=== PATIENT | female | born 1990 ===

== ENCOUNTER 2018-04-28 11:01 | Emergency (ER) | payer BC, MEDICAID ==
[2018-04-28 11:16] VITALS: RESP 16; O2SAT 99
[2018-04-28 11:17] VITALS: BMI 39.9
--- NOTE | 2018-04-28 11:34 | ED PDOC ---
Upper Extremity Pain/Injury Time Seen by Provider: 04/28/18 11:23 Chief Complaint (Nursing): Finger,Hand,&Wrist History Per: Patient Onset/Duration Of Symptoms: Hrs (14) Current Symptoms Are (Timing): Still Present Quality: Aching Severity: Mild Additional Complaint(s): Slammed car door on left thumb last night. C/o pain left thumb. Nail/acrylic broken. Able to flex and extend thumb. Past Medical History Vital Signs: Last Vital Signs Temp 97 F L 04/28/18 11:15 Pulse 85 04/28/18 11:15 Resp 16 04/28/18 11:15 BP 121/73 04/28/18 11:15 Pulse Ox 99 04/28/18 11:15 - Medical History PMH: No Chronic Diseases - Family History Family History: States: Unknown Family Hx - Home Medications Home Medications: Ambulatory Orders Medication Instructions Recorded Naproxen [Naprosyn] 500 mg PO Q12H #20 tab 04/28/18 - Allergies Allergies/Adverse Reactions: Allergies Allergy/AdvReac Type Severity Reaction Status Date / Time No Known Allergies Allergy Verified 04/28/18 11:31 Review of Systems Constitutional: Negative for: Fever Musculoskeletal: Positive for: Other (Left thumb pain) Neurological: Negative for: Weakness, Numbness Physical Exam - Physical Exam Appears: Positive for: No Acute Distress Skin: Positive for: Normal Color, Warm, DRY Extremity: Positive for: Other (Left thumb, nail/acrylic broken mid nail horizontally. Able to extend and flex DIP joint left thumb) - ECG O2 Sat by Pulse Oximetry: 99 Procedures - Time-Out Type of Procedure: Nail removal left thumb Site of Procedure: Left thumb Correct Patient: Yes Correct Procedure: Yes - Additional Procedures Progress: Left thumb nail removed. Digital nerve block using 5 ml lidocaine %. 3 mm lac to nail bed noted. Discussed with hand surgeon Dr. Shukla, recommended dermabond and f/u in office Tuesday. Disposition - Clinical Impression Clinical Impression: Laceration of finger nail bed - Patient ED Disposition Is Patient to be Admitted: No Counseled Patient/Family Regarding: Studies Performed, Diagnosis, Need For Followup - Disposition Referrals: Maricruz Mcgarry MD [Staff Provider] - Disposition: Routine/Home Disposition Time: 13:02 Condition: FAIR Prescriptions: Naproxen [Naprosyn] 500 mg PO Q12H #20 tab Instructions: Laceration Repair With Glue (DC) Forms: [facility] (Turkish)
[2018-04-28] MEDS ORDERED: Povidone Iodine Topical 10% Sol ONE (12:07)
[2018-04-28] MEDS ORDERED: Lidocaine 1% Inj (20ml) IJ ONE (12:18)
[2018-04-28] MEDS ORDERED: Lidocaine Hydrochloride 5 ML INJ ONE ×2 (12:22→12:31)
[2018-04-28] MEDS ORDERED: Lidocaine 1% PF (5ml) Amp INJ ONE (12:30)
--- NOTE | 2018-04-28 12:41 | RAD ---
Date of service: 04/28/2018 PROCEDURE: Left Thumb radiographs. HISTORY: trauma COMPARISON: None. TECHNIQUE: AP radiograph of the left hand, as well as spot oblique and lateral images of thumb were obtained. FINDINGS: LEFT THUMB: Normal left thumb, without fracture or focal lesion. Remainder of the left hand (as seen on the AP view) grossly unremarkable. JOINTS: Normal. SOFT TISSUES: Normal. OTHER FINDINGS: None. IMPRESSION: Normal left thumb radiographs.
[2018-04-28 13:43] VITALS: BP 137/81; PULSE 96; TEMP 98.5
== END 2018-04-28 13:30 | disposition home or self-care (01) ==
LOC: H.ER 11:01
DX: S61.012A Laceration without foreign body of left thumb without damage to nail, initial encounter (principal); W23.0XXA Caught, crushed, jammed, or pinched between moving objects, initial encounter; Y92.89 Other specified places as the place of occurrence of the external cause